=== PATIENT | female | born 1985 | race African-American/Black ===

== ENCOUNTER 2020-06-19 00:24 | Emergency (ER) | payer SELFPAY ==
[~2020-06-19] VITALS: Ht 167.6 cm; Wt 64.0 kg
[2020-06-19 01:59] LABS: BASOPHILS % 0.6 % (0.0-2.0); EOSINOPHILS % 0.2 % (0.0-5.0); HEMATOCRIT. 36.5 % (36.0-48.0); HEMOGLOBIN. 12.3 g/dL (12.0-16.0); LYMPHOCYTES % 13.9 % (20.0-50.0); MEAN CORPUSCULAR HEMOGLOBIN 30.7 pg (28.0-32.0); MEAN CORPUSCULAR VOLUME 90.7 fL (81.0-99.0); MEAN PLATELET VOLUME 7.6 fl (7.4-10.4); MONOCYTES % 6.5 % (2.0-8.0); NEUTROPHILS % 78.8 % (40.0-76.0); PLATELET 262 x1000/uL (130-400); RED BLOOD CELL COUNT 4.02 mill/uL (4.2-5.4); RED CELL DISTRIBUTION WIDTH 13.7 % (11.6-14.6)
[2020-06-19 02:02] LABS: *AMPHETAMINES SCREEN URINE NEGATIVE (NEGATIVE); *BARBITURATES SCREEN URINE NEGATIVE (NEGATIVE); *BENZODIAZEPINES SCREEN URINE NEGATIVE (NEGATIVE); *COCAINE SCREEN URINE NEGATIVE (NEGATIVE); METHADONE URINE SCREEN NEGATIVE (NEGATIVE); OPIATES URINE SCREEN NEGATIVE (NEGATIVE)
[2020-06-19 02:03] LABS: PHENCYCLIDINE URINE SCREEN NEGATIVE (NEGATIVE)
[2020-06-19 02:05] LABS: CHLORIDE 112 mEq/L (98-107)
[2020-06-19] MEDS ORDERED: HYDROCODONE/ACETAMINOPHEN 5/325MG TABLET PO STA (02:06)
[2020-06-19 02:07] LABS: CANNABINOID URINE SCREEN PRESUMTIVE POSITIVE (NEGATIVE)
[2020-06-19 02:09] LABS: ETHANOL BLOOD 107 mg/dL; HCG SCREEN NEGATIVE
[2020-06-19] MEDS ORDERED: BACITRACIN ZINC OINT UDPKT TOP ONE (04:45)
[2020-06-19] MEDS ORDERED: AMOXICILLIN/POTASSIUM CLAVULANATE 875/125MG TAB PO ONE (04:45)
[2020-06-19] MEDS ORDERED: TETANUS, DIPHTHERIA, PERTUSSIS VAC/PF 0.5ML (>7YR OLD) IM ONE (04:45)
[2020-06-19 04:58] VITALS: BP 130/80
[2020-06-19] MEDS ORDERED: IBUP-2029 PO (05:10)
[2020-06-19] MEDS ORDERED: AMOX-424 PO (05:10)
[2020-06-19] MEDS ORDERED: HYDR-4346 PO (05:10)
== END 2020-06-19 05:16 | disposition home or self-care (01) ==
LOC: ER 00:24
DX: S02.122A Fracture of orbital roof, left side, initial encounter for closed fracture (principal); S02.2XXA Fracture of nasal bones, initial encounter for closed fracture; S02.401A Maxillary fracture, unspecified side, initial encounter for closed fracture; S20.219A Contusion of unspecified front wall of thorax, initial encounter; M25.562 Pain in left knee; M25.561 Pain in right knee; M79.641 Pain in right hand; F12.10 Cannabis abuse, uncomplicated; F10.10 Alcohol abuse, uncomplicated; Y90.5 Blood alcohol level of 100-119 mg/100 ml; V49.40XA Driver injured in collision with unspecified motor vehicles in traffic accident, initial encounter; Y93.9 Activity, unspecified; Y92.410 Unspecified street and highway as the place of occurrence of the external cause
CPT/HCPCS: 36415; 70486; 71046; 73130; 73562; 80048; 80305; 80320; 81025; 84703; 85025; 90471; 90715; 93005; 99285; G0480